=== PATIENT | male | born 1995 | race Caucasian/White ===

== ENCOUNTER 2018-05-10 18:26 | Emergency (ER) | payer OTHER ==
--- NOTE | 2018-05-10 18:43 | PDOC ---
Rapid Medical Evaluation Time Seen by Provider: 05/10/18 18:41 Medical Evaluation: Allergies Allergy/AdvReac Type Severity Reaction Status Date / Time No Known Allergies Allergy Verified 05/06/15 18:59 I have performed a brief in-person evaluation of this patient. The patient presents with a chief complaint of: overall body rash and itching. Denies new exposures Pertinent physical exam findings: raised red rash to chest I have ordered the following: nothing The patient will proceed to the ED for further evaluation. Discharge Disposition - Diagnosis Rash - Referrals Referrals: Charley Dubois MD [Primary Care Provider] - - Patient Instructions - Post Discharge Activity
[2018-05-10 18:46] VITALS: BP 105/53; PULSE 74; TEMP 98.2; BMI 21.7
--- NOTE | 2018-05-10 20:01 | PDOC ---
History of Present Illness - General Chief Complaint: Rash Stated Complaint: RASH Time Seen by Provider: 05/10/18 18:41 - History of Present Illness Initial Comments: 05/10/18 19:59 23-year-old male without comorbidities presents for evaluation of itching times one day he is unsure of any precipitating food detergent or exposure which precipitated the itching area he has no other symptoms Past History - Past Medical History Allergies/Adverse Reactions: Allergies Allergy/AdvReac Type Severity Reaction Status Date / Time No Known Allergies Allergy Verified 05/10/18 18:44 Home Medications: Ambulatory Orders Diphenhydramine HCl [Benadryl -] 25 mg PO Q6H PRN #28 capsule 05/10/18 Methylprednisolone [Medrol Dose Magdi] 4 mg PO ASDIR #21 tablet 05/10/18 COPD: No - Immunization History Immunization Up to Date: Yes - Suicide/Smoking/Psychosocial Hx Smoking History: Never smoked Information on smoking cessation initiated: No Hx Alcohol Use: No Drug/Substance Use Hx: No Substance Use Type: None Review of Systems - Review of Systems Constitutional: No: Chills, Fever, Malaise, Night Sweats Respiratory: No: Cough, Shortness of Breath, Wheezing Integumentary: Yes: Pruritus, Rash *Physical Exam - Vital Signs Last Vital Signs Temp Pulse Resp BP Pulse Ox 98.2 F 74 16 105/53 L 97 05/10/18 18:44 05/10/18 18:44 05/10/18 18:44 05/10/18 18:44 05/10/18 18:44 - Physical Exam Comments: 05/10/18 19:59 HEAD: NC/AT EYES: Conjuntiva clear Ears: Canals and TM's normal NOSE: No d/c THROAT: Moist mucous membrances, oral pharanx clear, uvula midline NECK: Supple without adenopathy CARDIAC: S1 S2 LUNGS: CTA Full and Equal breath sounds ABDOMEN: Soft NT ND MS: Full ROM in all joints without edema NEUROLOGIC: No gross sensory or motor deficits, NVID SKIN: Normal color and temperature are diffuse hives on the anterior aspect the chest back and neck as well as bilateral arms *DC/Admit/Observation/Transfer Diagnosis at time of Disposition: Rash, Rash due to allergy - Discharge Dispostion Disposition: HOME Condition at time of disposition: Stable Decision to Admit order: No - Prescriptions Prescriptions: Diphenhydramine HCl [Benadryl -] 25 mg PO Q6H PRN #28 capsule PRN Reason: For Itching Methylprednisolone [Medrol Dose Magdi] 4 mg PO ASDIR #21 tablet - Referrals Referrals: Charley Dubois MD [Staff Physician] - - Patient Instructions Printed Discharge Instructions: DI for General Allergic Reactions Additional Instructions: Please take the steroid as directed. Return to the emergency room should symptoms worsen or go unresolved. Follow-up with your primary care physician one to 2 days for further evaluation and treatment options. Use the Benadryl as directed for itching - Post Discharge Activity
== END 2018-05-10 20:15 | disposition home or self-care (01) ==
LOC: JERFT 18:26
DX: L50.0 Allergic urticaria (principal)
CPT/HCPCS: 99281-25

== ENCOUNTER 2022-12-30 22:51 | Emergency (ER) | payer OTHER ==
[2022-12-30 22:55] VITALS: BP 138/69; PULSE 55; RESP 16; TEMP 98.4; BMI 21.7
[2022-12-31] MEDS ORDERED: ONDANSETRON 4 MG/2 ML VIAL IVPUSH ONE (01:26)
[2022-12-31] MEDS ORDERED: FAMOTIDINE 20 MG/50 ML IVPB 20 MG/50 ML MG IVPB ONE ×2 (01:26→01:38)
[2022-12-31] MEDS ORDERED: SODIUM CHLORIDE 0.9% 500 ML INFUS.BAG IV ONE (01:26)
[2022-12-31] MEDS ORDERED: ACETAMINOPHEN 1000 MG/100 ML BAG IVPB ONE (01:26)
[2022-12-31] MEDS ORDERED: ONDANSETRON 4 MG/2 ML VIAL ONE (01:38)
[2022-12-31] MEDS ORDERED: ACETAMINOPHEN INJECTION 100 ML IVPB ONE (01:38)
[2022-12-31 01:46] LABS: BASO % 0.3 % (0-2.0); EOS % 0.2 % (0-4.5); HEMATOCRIT 48.8 % (35.4-49); LYMPH % 17.5 % (8-40); MCH 29.8 pg (25.7-33.7); MCHC 34.7 g/dl (32.0-35.9); MEAN CELL VOLUME 85.8 fl (80-96); MEAN PLT VOLUME 9.6 fl (7.5-11.1); MONO % 4.9 % (3.8-10.2); NEUT % 77.1 % (42.8-82.8); PLATELET COUNT 146 10^3/uL (134-434); RBC 5.69 M/mm3 (4.00-5.60); RDW 13.6 % (11.9-15.9); WHITE BLOOD COUNT 7.4 K/mm3 (4.0-10.0)
[2022-12-31 02:23] LABS: CALCIUM 9.2 mg/dL (8.5-10.1)
[2022-12-31 02:24] LABS: ALBUMIN 4.3 g/dl (3.4-5.0); BLOOD UREA NITROGEN 12.9 mg/dL (7-18); MAGNESIUM 2.2 mg/dL (1.8-2.4)
[2022-12-31 02:27] LABS: CREATININE 0.7 mg/dL (0.55-1.3)
[2022-12-31 02:28] LABS: BILIRUBIN,TOTAL 0.5 mg/dL (0.2-1); TOT PROT 7.3 g/dl (6.4-8.2)
== END 2022-12-31 05:15 | disposition home or self-care (01) ==
LOC: JER 22:51
PROC: 3E033GC Introduction of Other Therapeutic Substance into Peripheral Vein, Percutaneous Approach (ICD-10-PCS; principal; 2022-12-31)
PROC: 3E033GC Introduction of Other Therapeutic Substance into Peripheral Vein, Percutaneous Approach (ICD-10-PCS; 2022-12-31)
PROC: 3E033NZ Introduction of Analgesics, Hypnotics, Sedatives into Peripheral Vein, Percutaneous Approach (ICD-10-PCS; 2022-12-31)
DX: R10.33 Periumbilical pain (principal); R11.2 Nausea with vomiting, unspecified; R63.8 Other symptoms and signs concerning food and fluid intake; Z20.822 Contact with and (suspected) exposure to COVID-19
CPT/HCPCS: 0241U-QW; 36415; 74177-TC; 80053; 83690; 83735; 85025; 93005; 93010; 99285-25